=== PATIENT | female | born 1970 | race Two or more races ===

== ENCOUNTER 2025-03-01 18:44 | Inpatient (IN) | payer OTHER ==
[~2025-03-01] VITALS: Ht 162.6 cm; Wt 73.9 kg
[2025-03-01 20:04] LABS: BASOPHILS % 0.6 % (0.0-2.0); DIFFERENTIAL COMMENT 0; EOSINOPHILS % 0.7 % (0.0-5.0); HEMATOCRIT. 39.4 % (36.0-48.0); HEMOGLOBIN. 12.7 g/dL (12.0-16.0); LYMPHOCYTES % 20.8 % (20.0-50.0); MEAN CORPUSCULAR HEMOGLOBIN 23.7 pg (28.0-32.0); MEAN CORPUSCULAR HGB CONC 32.2 g/dL (31.0-37.0); MEAN CORPUSCULAR VOLUME 73.6 fL (81.0-99.0); MEAN PLATELET VOLUME 8.7 fl (7.4-10.4); MONOCYTES % 5.6 % (2.0-8.0); NEUTROPHILS % 72.3 % (40.0-76.0); PLATELET 276 x1000/uL (130-400); RED BLOOD CELL COUNT 5.35 mill/uL (4.2-5.4)
[2025-03-01 20:14] LABS: CHLORIDE 103 mEq/L (98-107); POTASSIUM 3.8 mEq/L (3.5-5.1); SODIUM 138 mEq/L (136-145)
[2025-03-01 20:15] LABS: CALCIUM 9.5 mg/dL (8.7-10.4); CARBON DIOXIDE 27 mEq/L (21-32)
[2025-03-01 20:20] LABS: CREATININE 0.7 mg/dL (0.6-1.0); GLUCOSE 97 mg/dL (70-105); UREA NITROGEN BLOOD 12 mg/dL (9-23)
[2025-03-01 20:21] LABS: TROPONIN I HIGH SENSITIVITY 19 ng/L (3.0-34)
[2025-03-01 22:00] VITALS: BP 114/64; PULSE 71; RESP 17; TEMP 36.1
[2025-03-01] MEDS ORDERED: ONDANSETRON HCL 4MG/2ML INJ IV PRN (23:00)
[2025-03-01] MEDS ORDERED: GUAIFENESIN 200MG/10ML SUGAR FREE UDC PO PRN (23:00)
[2025-03-01] MEDS ORDERED: DOCUSATE SODIUM 100MG CAPSULE PO PRN (23:00)
[2025-03-01] MEDS ORDERED: CLONIDINE 0.1MG TABLET PO PRN (23:00)
[2025-03-01] MEDS ORDERED: MAGNESIUM/ALUMINUM HYDROXIDE/SIMETHICONE 30ML UDC PO PRN (23:00)
[2025-03-01] MEDS ORDERED: ZOLPIDEM TARTRATE 5MG TABLET PO PRN (23:00)
[2025-03-01] MEDS ORDERED: ACETAMINOPHEN 325MG TABLET PO PRN (23:00)
[2025-03-01] MEDS ORDERED: IPRATROPIUM/ALBUTEROL 0.5-3(2.5)MG/3ML NEB HHN PRN (23:00)
[2025-03-02] VITALS: BP 95/55; PULSE 81; RESP 17; TEMP 36.5; O2SAT 100
[2025-03-02] MEDS: ACETAMINOPHEN 325MG TABLET PO PRN (00:04)
[2025-03-02 00:59] LABS: TROPONIN I HIGH SENSITIVITY 36 ng/L (3.0-34)
[2025-03-02 02:18] LABS: D-DIMER 0.36 mg/L FEU (<0.50); PROTHROMBIN TIME 10.9 sec (9.6-11.0)
[2025-03-02 02:22] LABS: AMMONIA < 17 uMol/L (<32)
[2025-03-02 02:23] LABS: ETHANOL BLOOD < 10 mg/dL (<10); TRIGLYCERIDE 233 mg/dL (0-150)
[2025-03-02 02:24] LABS: LDL CHOLESTEROL 174 mg/dL (5-100)
[2025-03-02 02:25] LABS: ALANINE AMINOTRANSFERASE 21 IU/L (10-49); ALBUMIN 4.1 g/dL (3.2-4.8); ASPARTATE AMINOTRANSFERASE 16 IU/L (<34); BILIRUBIN DIRECT 0.1 mg/dL (<=3.0); BILIRUBIN TOTAL 0.6 mg/dL (0.1-1.0); CHOLESTEROL 276 mg/dL (<200); HDL CHOLESTEROL 72 mg/dL (>65); PHOSPHORUS 3.9 mg/dL (2.5-4.9); PROTEIN TOTAL 6.4 g/dL (6.0-8.3)
[2025-03-02 02:27] LABS: T4 FREE 1.16 ng/dL (0.89-1.76)
[2025-03-02 02:28] LABS: THYROID STIMULATING HORMONE 2.89 uIU/mL (0.55-4.78)
[2025-03-02 02:45] LABS: IRON 62 ug/dL (50-170)
[2025-03-02 02:47] LABS: TOTAL IRON BINDING CAPACITY 260 ug/dl (250-425)
[2025-03-02 02:50] LABS: FOLIC ACID (FOLATE) SERUM 6.57 ng/mL (>5.38)
[2025-03-02 04:00] VITALS: BP 100/50; PULSE 71; RESP 17; TEMP 36.6; O2SAT 99
[2025-03-02 07:21] LABS: HEMATOCRIT 35.2 % (36.0-48.0); HEMOGLOBIN 11.5 g/dL (12.0-16.0); MEAN CORPUSCULAR HGB CONC 32.7 g/dL (31.0-37.0); MEAN CORPUSCULAR VOLUME 73.4 fL (81.0-99.0); PLATELET 272 x1000/uL (130-400); RED CELL DISTRIBUTION WIDTH 15.3 % (11.6-14.6); WHITE BLOOD COUNT 7.5 x1000/uL (4.5-11.0)
[2025-03-02 08:00] VITALS: BP 102/58; PULSE 64; RESP 18; TEMP 36.1; O2SAT 98
[2025-03-02 08:15] LABS: CARBON DIOXIDE 27 mEq/L (21-32); CHLORIDE 105 mEq/L (98-107); POTASSIUM 3.6 mEq/L (3.5-5.1); SODIUM 140 mEq/L (136-145)
[2025-03-02 08:20] LABS: CREATININE 0.6 mg/dL (0.6-1.0); GLUCOSE 82 mg/dL (70-105); UREA NITROGEN BLOOD 9 mg/dL (9-23)
[2025-03-02 08:22] LABS: CREATINE KINASE 43 IU/L (34-145); PHOSPHORUS 3.8 mg/dL (2.5-4.9)
[2025-03-02 08:24] LABS: CREATINE KINASE MB FRACTION 0.6 ng/mL (0.5-3.6); TROPONIN I HIGH SENSITIVITY 29 ng/L (3.0-34)
[2025-03-02] MEDS ORDERED: VERA240C3 PO (08:44)
[2025-03-02 12:00] VITALS: BP 120/67; PULSE 64; RESP 17; TEMP 36.1; O2SAT 99
[2025-03-02] MEDS: KETOROLAC 15MG/ML VIAL IV PRN (13:53)
[2025-03-02 16:00] VITALS: BP 113/65; PULSE 73; RESP 18; TEMP 36.1; O2SAT 97
[2025-03-02 18:32] LABS: CREATINE KINASE MB FRACTION 0.6 ng/mL (0.5-3.6)
[2025-03-02 20:00] VITALS: BP 110/64; PULSE 62; RESP 19; TEMP 36.4; O2SAT 96
[2025-03-02] MEDS: VERAPAMIL HCL 120MG TABLET PO SCH (21:00)
[2025-03-02] MEDS: ATORVASTATIN CALCIUM 40MG TABLET PO SCH (21:21)
[2025-03-02] MEDS: FAMOTIDINE 20MG TABLET PO SCH (21:22)
[2025-03-03] VITALS: BP 112/61; PULSE 64; RESP 19; TEMP 36.2; O2SAT 96
[2025-03-03 04:00] VITALS: BP 127/85; PULSE 72; RESP 19; TEMP 36.2; O2SAT 100
[2025-03-03 08:00] VITALS: BP 134/78; PULSE 73; RESP 20; TEMP 36.9; O2SAT 98
[2025-03-03] MEDS ORDERED: LIP40 PO (09:30)
[2025-03-03] MEDS ORDERED: VERA120T23 PO (09:30)
[2025-03-03] MEDS ORDERED: VERA120T23 MT (09:36)
[2025-03-03] MEDS ORDERED: ATOR40TA70 MT (09:36)
[2025-03-03 10:01] VITALS: BP 134/78; PULSE 73; TEMP 98.5; O2SAT 98
[2025-03-03 12:00] VITALS: BP 106/62; PULSE 63; RESP 20; TEMP 37.1; O2SAT 98
== END 2025-03-03 15:45 | disposition home or self-care (01) | DRG 310 ==
LOC: ER 18:44 → EDBEDREQ 19:09 → ENRESERV 21:03 → 8WST 21:42
PROVIDERS: ADMIT Internal Medicine; ATTEND Internal Medicine
DX: I47.19 Other supraventricular tachycardia (principal); D50.9 Iron deficiency anemia, unspecified; E78.5 Hyperlipidemia, unspecified; R79.89 Other specified abnormal findings of blood chemistry
CPT/HCPCS: 36415; 71045; 80048; 80061; 80076; 80320; 82140; 82550; 82553; 82728; 82746; 83036; 83540; 83550; 83735; 83880; 84100; 84145; 84439; 84443; 84484; 85025; 85027; 85379; 93005; 93970; 99291; J1885; G0480